=== PATIENT | female | born 1975 | race Caucasian/White ===

== ENCOUNTER 2020-05-08 09:34 | Emergency (ER) | payer BC, OTHER ==
--- NOTE | 2020-05-08 10:20 | EDM.PDOC ---
ED HPI GENERAL MEDICAL PROBLEM - General Chief Complaint: Abdominal Pain Stated Complaint: LOW ABD PAIN SENT BY [facility] POSSIBLE APPENDICITIS Time Seen by Provider: 05/08/20 09:47 Source of Information: Reports: Patient History Limitations: Reports: No Limitations - History of Present Illness INITIAL COMMENTS - FREE TEXT/NARRATIVE: 44-year-old female presents to the emergency department complaints of right lower quadrant abdominal pain. Patient was seen at [facility] and assessed by a nurse and then was sent here to be seen for possible appendicitis. Patient states she developed right lower quadrant abdominal pain that started Tuesday evening. She states she had pizza for supper and then went to bed while after and that is when the pain developed. She states that when she ambulates she does have some discomfort in the right lower quadrant. She denies any fever, chills, nausea or vomiting associated with this. She states her appetite has been good. Denies any issues with diarrhea or constipation. She does have a history of hysterectomy however she does still have her ovaries and she is on hormone replacement therapy. Patient states she does have a history of ovarian cyst, but this was in middle school. Onset: Gradual Right Lower Pelvic Pain Score (Numeric/FACES): 3 - Related Data Allergies Allergy/AdvReac Type Severity Reaction Status Date / Time hydrocodone Allergy Hives Verified 05/08/20 09:55 meperidine [From Demerol] Allergy Hives Verified 05/08/20 09:55 nitrofurantoin Allergy Hives Verified 05/08/20 09:55 [From Macrobid] Penicillins Allergy Hives Verified 05/08/20 09:55 Sulfa (Sulfonamide Allergy Hives Verified 05/08/20 09:55 Antibiotics) Home Meds: Home Meds Ciprofloxacin [Cipro] 250 mg PO BID #6 ml 05/08/20 [Rx] Esomeprazole Magnesium [Nexium] 40 mg PO DAILY PRN 05/08/20 [History] Losartan [Cozaar] 25 mg PO DAILY 05/08/20 [History] Propranolol HCl [Propranolol HCl ER] 160 mg PO DAILY 05/08/20 [History] hydroCHLOROthiazide [Hydrochlorothiazide] 25 mg PO DAILY 05/08/20 [History] ED ROS GENERAL - Review of Systems Review Of Systems: Comprehensive ROS is negative, except as noted in HPI. ED EXAM, GI/ABD - Physical Exam Exam: See Below Exam Limited By: No Limitations General Appearance: Alert, WD/WN, No Apparent Distress Ears: Hearing Grossly Normal Nose: Normal Inspection Throat/Mouth: Normal Voice, No Airway Compromise Head: Atraumatic, Normocephalic Neck: Normal Inspection, Supple, Non-Tender, Full Range of Motion Respiratory/Chest: No Respiratory Distress, Lungs Clear, Normal Breath Sounds, No Accessory Muscle Use, Chest Non-Tender Cardiovascular: Normal Peripheral Pulses, Regular Rate, Rhythm, No Edema, No Murmur GI/Abdominal Exam: Normal Bowel Sounds, Soft, No Distention, Tender (right lower quadrant) (Female) Exam: Deferred Rectal (Female) Exam: Deferred Back Exam: Normal Inspection, Full Range of Motion Extremities: Normal Inspection, Normal Range of Motion, Non-Tender, No Pedal Edema, Normal Capillary Refill Neurological: Alert, Oriented, Normal Cognition Psychiatric: Normal Affect, Normal Mood Skin Exam: Warm, Dry, Intact, Normal Color, No Rash Lymphatic: No Adenopathy Course - Vital Signs Text/Narrative:: 44 old female presents emergency department complaints of right lower quadrant abdominal pain that started Tuesday evening when she went to bed. She states this pain has been fairly constant to the right lower quadrant since then. Denies any nausea, vomiting, fever, chills, diarrhea or constipation. She still has a good appetite and has been eating and drinking normally. I have ordered CBC, CMP, CRP, CT of abdomen and pelvis and a urinalysis Last Recorded V/S: Last Vital Signs Temp 97.3 F 05/08/20 09:53 Pulse 78 05/08/20 09:53 Resp 14 05/08/20 09:53 BP 136/81 05/08/20 09:53 Pulse Ox - Orders/Labs/Meds Orders: Active Orders 24 hr Category Date Time Status CULTURE URINE [RM] Stat Lab 05/08/20 10:55 Received Sodium Chloride 0.9% [Saline Flush] Med 05/08/20 10:12 Active 10 ml FLUSH ASDIRECTED PRN Sodium Chloride 0.9% [Saline Flush] Med 05/08/20 10:28 Active 10 ml FLUSH ONETIME PRN Saline Lock Insert [OM.PC] Stat Oth 05/08/20 10:12 Ordered Medication Orders Sodium Chloride (Saline Flush) 10 ml FLUSH ASDIRECTED PRN PRN Reason: Keep Vein Open Last Admin: 05/08/20 12:04 Dose: 10 ml Documented by: Admin: 05/08/20 10:50 Dose: 10 ml Documented by: ASA Sodium Chloride (Saline Flush) 10 ml FLUSH ONETIME PRN PRN Reason: IV FLUSH Labs: Laboratory Tests 05/08/20 05/08/20 05/08/20 Range/Units 10:45 10:45 10:55 WBC 9.36 (3.98-10.04) K/mm3 RBC 4.90 (3.98-5.22) M/mm3 Hgb 14.1 (11.2-15.7) gm/dl Hct 43.7 (34.1-44.9) % MCV 89.2 (79.4-94.8) fl MCH 28.8 (25.6-32.2) pg MCHC 32.3 (32.2-35.5) g/dl RDW Std Deviation 42.0 (36.4-46.3) fL Plt Count 287 (182-369) K/mm3 MPV 10.7 (9.4-12.3) fl Neut % (Auto) 73.2 H (34.0-71.1) % Lymph % (Auto) 18.4 L (19.3-51.7) % [place] % (Auto) 7.5 (4.7-12.5) % Eos % (Auto) 0.6 L (0.7-5.8) Baso % (Auto) 0.2 (0.1-1.2) % Neut # (Auto) 6.85 H (1.56-6.13) K/mm3 Lymph # (Auto) 1.72 (1.18-3.74) K/mm3 [place] # (Auto) 0.70 H (0.24-0.36) K/mm3 Eos # (Auto) 0.06 (0.04-0.36) K/mm3 Baso # (Auto) 0.02 (0.01-0.08) K/mm3 Sodium 144 (136-145) mEq/L Potassium 4.0 (3.5-5.1) mEq/L Chloride 104 (98-107) mEq/L Carbon Dioxide 29 (21-32) mEq/L Anion Gap 15.0 (5-15) BUN 11 (7-18) mg/dL Creatinine 0.6 (0.55-1.02) mg/dL Est Cr Clr Drug Dosing 98.98 mL/min Estimated GFR (MDRD) > 60 (>60) mL/min BUN/Creatinine Ratio 18.3 H (14-18) Glucose 104 (74-106) mg/dL Calcium 8.9 (8.5-10.1) mg/dL Total Bilirubin 0.4 (0.2-1.0) mg/dL AST 12 L (15-37) U/L ALT 19 (14-59) U/L Alkaline Phosphatase 94 (46-116) U/L C-Reactive Protein 2.2 H* (<1.0) mg/dL Total Protein 7.1 (6.4-8.2) g/dl Albumin 3.5 (3.4-5.0) g/dl Globulin 3.6 gm/dL Albumin/Globulin Ratio 1.0 (1-2) Urine Color Yellow (Yellow) Urine Appearance Clear (Clear) Urine pH 7.0 (5.0-8.0) Ur Specific [place] 1.020 (1.005-1.030) Urine Protein Negative (Negative) Urine Glucose (UA) Negative (Negative) Urine Ketones Negative (Negative) Urine Occult Blood Negative (Negative) Urine Nitrite Negative (Negative) Urine Bilirubin Negative (Negative) Urine Urobilinogen 0.2 (0.2-1.0) Ur Leukocyte Esterase 1+ H (Negative) Urine RBC 0-5 (0-5) /hpf Urine WBC 5-10 H (0-5) /hpf Ur Epithelial Cells 10-20 H (0-5) /hpf Urine Bacteria Few (FEW) /hpf Urine Mucus Few (FEW) /hpf Meds: Medications Generic Name Dose Route Start Last Admin Trade Name Freq PRN Reason Stop Dose Admin Sodium Chloride 10 ml 05/08/20 10:12 05/08/20 12:04 Saline Flush FLUSH 10 ml ASDIRECTED PRN Administration Keep Vein Open Sodium Chloride 10 ml 05/08/20 10:28 Saline Flush FLUSH ONETIME PRN IV FLUSH Discontinued Medications Generic Name Dose Route Start Last Admin Trade Name Freq PRN Reason Stop Dose Admin Diatrizoate Meglum/Diatrizoate Sod 120 ml 05/08/20 10:28 05/08/20 12:02 Gastrografin 37% PO 05/08/20 10:29 90 ml ONETIME ONE Administration Iopamidol 100 ml 05/08/20 10:28 05/08/20 12:03 Isovue-300 (61%) IVPUSH 05/08/20 10:29 100 ml ONETIME ONE Administration - Re-Assessments/Exams Free Text/Narrative Re-Assessment/Exam: 05/08/20 12:36 Labs reveal WBC 9.36, hemoglobin 14.1, hematocrit 43.7, sodium 144, potassium 4.0, carbon dioxide 29, anion gap 15.0, BUN 11, creatinine 0.6, C-reactive protein 2.2, Urinalysis reveals urine leuk esterase 1+, urine WBC 5-10,000 CT of the abdomen and pelvis radiologist impression: 1. Findings which I believe are incidental. Appendix is seen which is normal in size. Previous hysterectomy is noted. No free fluid or inflammatory changes appreciated. 2. Nothing acute is appreciated on CT study of the abdomen and pelvis. Patient will be discharged to home with a prescription for Cipro 250 mg twice daily for 2 to 3 days to treat urinary tract infection. Also recommend she start taking a probiotic daily. Departure - Departure Time of Disposition: 12:37 Disposition: Home, Self-Care 01 Condition: Good Clinical Impression: Urinary tract infection Qualifiers: Urinary tract infection type: site unspecified Hematuria presence: without hematuria Qualified Code(s): N39.0 - Urinary tract infection, site not specified - Discharge Information Prescriptions: Ciprofloxacin [Cipro] 250 mg PO BID #6 ml Referrals: Emi Nino NP [Primary Care Provider] - Forms: ED Department Discharge Additional Instructions: You were seen in the emergency department today with complaints of right lower quadrant abdominal pain. Lab work was unremarkable however a urinalysis revealed you do have a urinary tract infection. CT scan of the abdomen and pelvis was unremarkable. I have prescribed ciprofloxacin 250 mg to be taken twice daily for 3 days. Please take this until gone. Also recommend that you take a probiotic daily while taking the antibiotics. Follow-up with your regular provider in about a week if your condition does not resolve. Sepsis Event Note (ED) - Evaluation Sepsis Screening Result: No Definite Risk - Focused Exam Vital Signs: Vital Signs Temp Pulse Resp BP 05/08/20 09:53 97.3 F 78 14 136/81 - My Orders Last 24 Hours: My Active Orders 05/08/20 10:12 Sodium Chloride 0.9% [Saline Flush] 10 ml FLUSH ASDIRECTED PRN Saline Lock Insert [OM.PC] Stat 05/08/20 10:28 Sodium Chloride 0.9% [Saline Flush] 10 ml FLUSH ONETIME PRN 05/08/20 10:55 CULTURE URINE [RM] Stat - Assessment/Plan Last 24 Hours: My Active Orders 05/08/20 10:12 Sodium Chloride 0.9% [Saline Flush] 10 ml FLUSH ASDIRECTED PRN Saline Lock Insert [OM.PC] Stat 05/08/20 10:28 Sodium Chloride 0.9% [Saline Flush] 10 ml FLUSH ONETIME PRN 05/08/20 10:55 CULTURE URINE [RM] Stat
[2020-05-08] MEDS ORDERED: Sodium Chloride 0.9% 10 ML Syringe FLUSH PRN (10:28)
[2020-05-08] MEDS ORDERED: Diatrizoate Meglumine/Diatrizoate Sodium 37% 120 ML Bottle PO ONE (10:28)
[2020-05-08] MEDS ORDERED: Iopamidol 612 MG/ML 100 ML Bottle IVPUSH ONE (10:28)
[2020-05-08] MEDS: Sodium Chloride 0.9% 10 ML Syringe FLUSH PRN ×2 (10:50→12:04)
--- NOTE | 2020-05-08 12:18 | CT ---
CT abdomen and pelvis Technique: Multiple axial sections were obtained from above the dome of the diaphragm inferiorly through the pubic symphysis. Intravenous and oral contrast was utilized. Delayed images were obtained through the bladder. Reconstructed coronal and sagittal images were also obtained. Comparison: No prior abdominal imaging is available. Findings: Visualized lung bases show nothing acute. Liver contains no focal parenchymal abnormality. Gallbladder contains no calcified gallstones. Spleen appears within normal limits. Adrenal glands show no nodules. Pancreas is within normal limits. Kidneys show symmetric contrast enhancement with no hydronephrosis or mass being seen. Aorta shows no aneurysm. No retroperitoneal adenopathy or mesenteric abnormalities are appreciated. No pelvic mass or adenopathy is seen. Appendix is seen which is normal in size. Previous hysterectomy is noted. No free fluid or inflammatory change is appreciated. Delayed images show contrast within the distal ureters and within the bladder. Mild spondylolisthesis is seen due to degenerative apophyseal joint at L4-5. No acute osseous finding is seen. Impression: 1. Findings which I believe are incidental. 2. Nothing acute is appreciated on CT study of the abdomen and pelvis. Diagnostic code #2
== END 2020-05-08 12:47 | disposition home or self-care (01) ==
LOC: JD.ED 09:34
DX: N39.0 Urinary tract infection, site not specified (principal); Z88.5 Allergy status to narcotic agent; Z88.1 Allergy status to other antibiotic agents; Z88.0 Allergy status to penicillin; Z88.2 Allergy status to sulfonamides; Z79.899 Other long term (current) drug therapy
CPT/HCPCS: 36415; 74177; 80053; 81001; 85025; 86140; 87086; 99284; Q9963; Q9967; 99283